=== PATIENT | female | born 1960 | race Caucasian/White ===

== ENCOUNTER 2017-08-23 15:00 | Day surgery (SDC) | payer OTHER, MEDICAID ==
[~2017-08-23 15:00] MED LIST: CEFAZOLIN 1 GM INJ
[2017-08-23 16:20] LABS: ADD MAN DIFF? NO
[2017-08-23 16:22] LABS: BASOPHILS % 0.4 % (0.0-2.0); EOSINOPHILS # 0.1 10^3/ul (0.0-0.5); EOSINOPHILS % 1.3 % (0.0-7.0); HEMATOCRIT 30.6 % (37.0-47.0); HEMOGLOBIN 10.8 g/dl (12.0-16.0); LYMPHOCYTES # 2.5 10^3/ul (0.8-2.9); LYMPHOCYTES % 27.5 % (15.0-51.0); MEAN CORPUSCULAR HEMOGLOBIN 31.5 pg (29.0-33.0); MEAN CORPUSCULAR HGB CONC 35.3 g/dl (32.0-37.0); MEAN CORPUSCULAR VOLUME 89.2 fl (82.0-101.0); MEAN PLATELET VOLUME 8.8 fl (7.4-10.4); MONOCYTE # 0.5 10^3/ul (0.3-0.9); MONOCYTES % 5.7 % (0.0-11.0); NEUTROPHIL # 5.8 10^3/ul (1.6-7.5); NEUTROPHILS % 64.8 % (39.0-77.0); PLATELET COUNT 238 10^3/UL (140-415); RED BLOOD COUNT 3.43 10^6/ul (4.20-5.40); RED CELL DISTRIBUTION WIDTH 13.3 % (11.5-14.5)
[2017-08-23 16:41] LABS: PROTIME 13.3 Sec (11.9-14.9)
[2017-08-23 16:50] LABS: ALANINE AMINOTRANSFERASE 33 IU/L (13-69); ALBUMIN 4.7 g/dl (3.3-4.9); ALBUMIN/GLOBULIN RATIO 1.46; ALKALINE PHOSPHATASE 101 IU/L (42-121); ANION GAP 15 (8-16); ASPARTATE AMINO TRANSFERASE 35 IU/L (15-46); CARBON DIOXIDE 27 mmol/L (21-31); CHLORIDE 107 mmol/L (97-110); GLUCOSE 79 mg/dl (70-220); TOTAL PROTEIN 7.9 g/dl (6.1-8.1)
[2017-08-23 17:00] LABS: BLOOD UREA NITROGEN 16 mg/dl (7-20); CALCIUM 9.4 mg/dl (8.4-10.2); CREATININE 1.15 mg/dl (0.44-1.00); POTASSIUM 3.2 mmol/L (3.5-5.1)
[2017-08-23 17:02] LABS: SODIUM 146 mmol/L (135-144)
[2017-08-23 17:05] LABS: PARTIAL THROMBOPLASTIN TIME 44.4 Sec (25.0-35.0)
[2017-08-23] MEDS ORDERED: MIDAZOLAM 1 MG/ML 2 ML INJ (17:32)
[2017-08-23] MEDS ORDERED: LIDOCAINE 1% (MDV) 20 ML INJ (17:32)
[2017-08-23] MEDS ORDERED: PROPOFOL 20 ML (17:32)
[2017-08-23] MEDS ORDERED: PROVENTIL HFA 6.7GM INHALER (17:33)
[2017-08-23] MEDS ORDERED: ROPIVACAINE 0.2% 20 ML VIAL (17:39)
[2017-08-23] MEDS ORDERED: ONDANSETRON 4 MG INJ (17:46)
[2017-08-23] MEDS ORDERED: EPHEDrine SULFATE 50 MG/5 ML SYG (17:49)
[2017-08-23] MEDS: POLYMYXIN/BACITRACIN 1L IRRIG IRR (17:49)
[2017-08-23] MEDS ORDERED: LABETALOL HCL 20MG INJ IV (19:00)
[2017-08-23] MEDS ORDERED: HYDROmorphONE (0.2 MG/ML) 10ML SYG IV (19:00)
[2017-08-23] MEDS ORDERED: OXYCODONE/ACETAMINOPHEN (5/325) TAB PO (19:00)
== END 2017-08-23 20:10 | disposition home or self-care (01) ==
LOC: SDS 15:00
DX: M86.172 Other acute osteomyelitis, left ankle and foot (principal); M86.672 Other chronic osteomyelitis, left ankle and foot; I73.9 Peripheral vascular disease, unspecified; E11.9 Type 2 diabetes mellitus without complications
CPT/HCPCS: 28173; 71045; 73630-LT; 80053; 85025; 85610; 85730; 87070; 87075; 87102; 87116